=== PATIENT | female | born 1975 | race Caucasian/White ===

== ENCOUNTER → 2017-03-12 | Outpatient (CLI) | payer BC | END | disposition home or self-care (01) | LOC: MAMMO 08:12 | PROVIDERS: ATTEND Family Medicine | DX: Z12.31 Encounter for screening mammogram for malignant neoplasm of breast (principal) | CPT/HCPCS: G0202 ==

== ENCOUNTER → 2017-06-21 | Outpatient (CLI) | payer BC | END | disposition home or self-care (01) | LOC: US 07:58 | PROVIDERS: ATTEND Family Medicine | DX: E04.1 Nontoxic single thyroid nodule (principal) | CPT/HCPCS: 76536 ==

== ENCOUNTER → 2018-04-01 | Outpatient (CLI) | payer BC | END | disposition home or self-care (01) | LOC: US 14:42 | PROVIDERS: ATTEND Family Medicine | DX: E04.1 Nontoxic single thyroid nodule (principal); N92.1 Excessive and frequent menstruation with irregular cycle | CPT/HCPCS: 76536; 76830; 76856; 93005 ==

== ENCOUNTER → 2018-10-29 | Outpatient (CLI) | payer BC | END | disposition home or self-care (01) | LOC: US 07:55 | PROVIDERS: ATTEND Obstetrics & Gynecology Obstetrics | DX: D25.9 Leiomyoma of uterus, unspecified (principal); N95.9 Unspecified menopausal and perimenopausal disorder; D39.0 Neoplasm of uncertain behavior of uterus | CPT/HCPCS: 76830; 76856 ==

== ENCOUNTER 2018-12-10 07:35 | Day surgery (SDC) | payer BC ==
[~2018-12-10] VITALS: Ht 157.5 cm; Wt 86.2 kg
[~2018-12-10 07:35] MED LIST: LOSA25TA26 PO
[2018-12-10] MEDS ORDERED: FENTANYL CITRATE/PF 50MCG/ML 2ML VIAL ONE (08:03)
[2018-12-10] MEDS ORDERED: PROPOFOL 200MG/20ML VIAL IV ONE (08:03)
[2018-12-10] MEDS ORDERED: MIDAZOLAM HCL 2 MG/2 ML VIAL ONE (08:03)
[2018-12-10] MEDS ORDERED: ROCURONIUM BROMIDE 10MG/ML VIAL 5ML IV ONE (08:03)
[2018-12-10] MEDS ORDERED: LIDOCAINE HCL 1% 20ML VIAL (Pyxis) INJ ONE (08:03)
[2018-12-10] MEDS ORDERED: SUCCINYLCHOLINE CHLORIDE 200MG/10ML IV ONE (08:04)
[2018-12-10 08:06] LABS: BASOPHILS % 0.9 % (0.0-2.0); EOSINOPHILS % 1.6 % (0.0-5.0); HEMATOCRIT. 31.9 % (36.0-48.0); HEMOGLOBIN. 9.7 g/dL (12.0-16.0); LYMPHOCYTES % 21.6 % (20.0-50.0); MEAN CORPUSCULAR HEMOGLOBIN 19.7 pg (28.0-32.0); MEAN CORPUSCULAR VOLUME 64.9 fL (81.0-99.0); MEAN PLATELET VOLUME 7.6 fl (7.4-10.4); MONOCYTES % 9.2 % (2.0-8.0); NEUTROPHILS % 66.7 % (40.0-76.0); PLATELET 308 x1000/uL (130-400); RED BLOOD CELL COUNT 4.91 mill/uL (4.2-5.4); RED CELL DISTRIBUTION WIDTH 19.1 % (11.6-14.6)
[2018-12-10 08:07] LABS: CLARITY URINE CLOUDY (CLEAR); COLOR URINE YELLOW (YELLOW); KETONES URINE NEGATIVE (NEGATIVE); LEUKOCYTE ESTERASE URINE 3+ (NEGATIVE); NITRITE URINE NEGATIVE (NEGATIVE); OCCULT BLOOD URINE TRACE (NEGATIVE); PROTEIN URINE NEGATIVE (NEGATIVE); SPECIFIC GRAVITY URINE 1.019 (1.005-1.030); UROBILINOGEN URINE 0.2 E.U./dL (0.2-1.0)
[2018-12-10] MEDS ORDERED: SODIUM CHLORIDE 0.9% 10ML VIAL ONE (08:08)
[2018-12-10] MEDS ORDERED: CEFAZOLIN SODIUM 1000MG/VIAL ONE (08:08)
[2018-12-10 08:09] LABS: UCG SCREEN NEGATIVE
[2018-12-10 08:12] LABS: CHLORIDE 107 mEq/L (98-107)
[2018-12-10 08:17] LABS: INR 0.9; PARTIAL THROMBOPLASTIN TIME 27.6 sec (23.4-31.0); PROTHROMBIN TIME 9.7 sec (9.6-11.0)
[2018-12-10] MEDS ORDERED: LACTATED RINGERS 1,000 ML IV SCH (08:30)
[2018-12-10] MEDS ORDERED: ACETAMINOPHEN 325MG TABLET PO PRN (08:30)
[2018-12-10] MEDS ORDERED: ONDANSETRON HCL 4MG/2ML INJ ONE (08:36)
[2018-12-10] MEDS ORDERED: DEXAMETHASONE 4MG/ML 1ML VIAL ONE (08:36)
[2018-12-10] MEDS ORDERED: METOCLOPRAMIDE HCL 10MG/2ML VIAL ONE (08:37)
[2018-12-10] MEDS ORDERED: HYDROMORPHONE HCL/PF 2MG/ML CPJ IV PRN (09:45)
[2018-12-10 09:56] LABS: PLATELET ESTIMATE NORMAL
== END 2018-12-10 11:05 | disposition home or self-care (01) ==
LOC: OR 07:35
PROVIDERS: ATTEND Obstetrics & Gynecology Obstetrics
DX: Z79.899 Other long term (current) drug therapy (principal); N84.0 Polyp of corpus uteri; I10 Essential (primary) hypertension; E66.9 Obesity, unspecified; Z80.49 Family history of malignant neoplasm of other genital organs
CPT/HCPCS: 36415; 58558; 80048; 81003; 81025; 85025; 85610; 85730; 87086; 88305; 93005; J0330; J0690; J1100; J2250; J2405; J2704; J2765; J3010; J3490

== ENCOUNTER → 2018-12-31 | Outpatient (CLI) | payer BC | END | disposition home or self-care (01) | LOC: RAD 14:39 | PROVIDERS: ATTEND Physician Assistant | DX: M25.522 Pain in left elbow (principal) | CPT/HCPCS: 73080 ==

== ENCOUNTER → 2019-05-19 | Outpatient (CLI) | payer BC ==
[2019-05-19 10:30] LABS: BASOPHILS % 0.6 % (0.0-2.0); EOSINOPHILS % 0.7 % (0.0-5.0); HEMATOCRIT. 31.9 % (36.0-48.0); HEMOGLOBIN. 9.8 g/dL (12.0-16.0); LYMPHOCYTES % 22.3 % (20.0-50.0); MEAN CORPUSCULAR HEMOGLOBIN 19.6 pg (28.0-32.0); MEAN CORPUSCULAR VOLUME 63.8 fL (81.0-99.0); MEAN PLATELET VOLUME 7.6 fl (7.4-10.4); MONOCYTES % 7.4 % (2.0-8.0); PLATELET 319 x1000/uL (130-400)
[2019-05-19 10:45] LABS: CHLORIDE 107 mEq/L (98-107)
[2019-05-19 10:46] LABS: PROTHROMBIN TIME 10.2 sec (9.6-11.0)
[2019-05-19 10:51] LABS: LDL CHOLESTEROL 123 mg/dL (5-100)
[2019-05-19 10:52] LABS: HDL CHOLESTEROL 55 mg/dL (40-59)
[2019-05-19 10:55] LABS: T4 FREE 1.08 ng/dL (0.76-1.46)
[2019-05-19 11:33] LABS: VITAMIN B12 SERUM 552 pg/mL (211-911)
[2019-05-19 12:01] LABS: CARCINO EMBRYONIC ANTIGEN 0.5 ng/ml
[2019-05-19 12:13] LABS: HEPATITIS B SURFACE ANTIGEN NEGATIVE
[2019-05-19 12:41] LABS: HEPATITIS A AB IGM NEGATIVE (NEGATIVE)
[2019-05-19 14:36] LABS: PLATELET ESTIMATE NORMAL
[2019-05-20 10:11] LABS: HELICOBACTER PYLORI AB IGG 0.2 (0.00-0.79); HOMOCYSTEINE PLASMA 7.2 umol/L (0.0-15.0); THYROID PEROXIDASE ANTIBODY 10 IU/mL (0-34); VITAMIN D 25-OH 21.1 ng/mL (30.0-100.0)
[2019-05-20 15:10] LABS: ANTI-NUCLEAR ANTIBODIES DIRECT Negative (Negative)
== END | disposition home or self-care (01) ==
LOC: US 07:59
PROVIDERS: ATTEND Family Medicine
DX: E04.2 Nontoxic multinodular goiter (principal); N63.11 Unspecified lump in the right breast, upper outer quadrant; R22.2 Localized swelling, mass and lump, trunk
CPT/HCPCS: 36415; 76536; 80061; 82306; 82378; 82607; 83036; 83090; 83735; 84439; 84443; 84481; 86038; 86226; 86376; 86677; 86705; 86709; 86803; 87340

== ENCOUNTER → 2019-06-18 | Outpatient (CLI) | payer BC ==
[2019-06-18 08:59] LABS: TOTAL IRON BINDING CAPACITY 493 ug/dL (250-450)
== END | disposition home or self-care (01) ==
LOC: LAB 08:26
PROVIDERS: ATTEND Family Medicine
DX: D64.9 Anemia, unspecified (principal)
CPT/HCPCS: 36415; 82728; 83540; 83550; 84466

== ENCOUNTER → 2019-09-28 | Outpatient (CLI) | payer BC ==
[2019-09-28 09:43] LABS: BASOPHILS % 0.9 % (0.0-2.0); EOSINOPHILS % 2.8 % (0.0-5.0); HEMATOCRIT. 37.4 % (36.0-48.0); HEMOGLOBIN. 12.2 g/dL (12.0-16.0); LYMPHOCYTES % 20.6 % (20.0-50.0); MEAN CORPUSCULAR HEMOGLOBIN 23.3 pg (28.0-32.0); MEAN CORPUSCULAR VOLUME 71.7 fL (81.0-99.0); MEAN PLATELET VOLUME 8.5 fl (7.4-10.4); MONOCYTES % 6.6 % (2.0-8.0); NEUTROPHILS % 69.1 % (40.0-76.0); PLATELET 270 x1000/uL (130-400); RED BLOOD CELL COUNT 5.22 mill/uL (4.2-5.4)
[2019-09-28 09:52] LABS: TOTAL IRON BINDING CAPACITY 477 ug/dL (250-450)
[2019-09-28 10:59] LABS: PLATELET ESTIMATE NORMAL
== END | disposition home or self-care (01) ==
LOC: LAB 08:48
PROVIDERS: ATTEND Family Medicine
DX: R05 Cough (principal); R10.9 Unspecified abdominal pain; D50.9 Iron deficiency anemia, unspecified
CPT/HCPCS: 36415; 71045; 83540; 83550; 85025

== ENCOUNTER → 2020-07-06 | Outpatient (CLI) | payer BC ==
[2020-07-06 11:35] LABS: BASOPHILS % 0.6 % (0.0-2.0); EOSINOPHILS % 1.7 % (0.0-5.0); HEMATOCRIT. 33.3 % (36.0-48.0); HEMOGLOBIN. 10.3 g/dL (12.0-16.0); MEAN CORPUSCULAR HEMOGLOBIN 20.1 pg (28.0-32.0); MEAN PLATELET VOLUME 7.9 fl (7.4-10.4); MONOCYTES % 8.9 % (2.0-8.0); NEUTROPHILS % 63.8 % (40.0-76.0); PLATELET 299 x1000/uL (130-400); RED BLOOD CELL COUNT 5.12 mill/uL (4.2-5.4); RED CELL DISTRIBUTION WIDTH 19.3 % (11.6-14.6)
[2020-07-06 11:41] LABS: CLARITY URINE CLEAR (CLEAR); COLOR URINE YELLOW (YELLOW); KETONES URINE NEGATIVE (NEGATIVE); LEUKOCYTE ESTERASE URINE NEGATIVE (NEGATIVE); NITRITE URINE NEGATIVE (NEGATIVE); OCCULT BLOOD URINE NEGATIVE (NEGATIVE); PH URINE 6.5 (4.5-8.0); PROTEIN URINE NEGATIVE (NEGATIVE); SPECIFIC GRAVITY URINE 1.008 (1.005-1.030); UROBILINOGEN URINE 0.2 E.U./dL (0.2-1.0)
[2020-07-06 11:44] LABS: CHLORIDE 104 mEq/L (98-107)
[2020-07-06 11:52] LABS: HDL CHOLESTEROL 64 mg/dL (40-59)
[2020-07-06 11:53] LABS: LDL CHOLESTEROL 142 mg/dL (5-100)
[2020-07-06 12:00] LABS: T4 FREE 1.11 ng/dL (0.76-1.46)
[2020-07-06 15:54] LABS: PLATELET ESTIMATE NORMAL
== END | disposition home or self-care (01) ==
LOC: LAB 10:36
PROVIDERS: ATTEND Family Medicine
DX: I10 Essential (primary) hypertension (principal); E04.1 Nontoxic single thyroid nodule
CPT/HCPCS: 36415; 80053; 80061; 81003; 83036; 84439; 84443; 84481; 85025; 86376

== ENCOUNTER → 2020-07-19 | Outpatient (CLI) | payer BC | END | disposition home or self-care (01) | LOC: LAB 10:50 | PROVIDERS: ATTEND Family Medicine | DX: Z20.828 Contact with and (suspected) exposure to other viral communicable diseases (principal) | CPT/HCPCS: 87426 ==

== ENCOUNTER → 2020-07-20 | Outpatient (CLI) | payer BC | END | disposition home or self-care (01) | LOC: US 10:04 | PROVIDERS: ATTEND Family Medicine | DX: E04.2 Nontoxic multinodular goiter (principal) | CPT/HCPCS: 76536 ==

== ENCOUNTER → 2020-08-31 | Outpatient (CLI) | payer BC | END | disposition home or self-care (01) | LOC: LAB 11:16 | PROVIDERS: ATTEND Surgery | DX: Z01.812 Encounter for preprocedural laboratory examination (principal); Z20.822 Contact with and (suspected) exposure to COVID-19 | CPT/HCPCS: 87426 ==

== ENCOUNTER → 2020-09-01 | Outpatient (CLI) | payer BC ==
[~2020-09-01] MED LIST changes: +LIDOCAINE HCL 1% 20ML VIAL (Pyxis) INJ ONE; +SODIUM BICARBONATE 4% (2.4MEQ) 5ML VIAL IV ONE
== END | disposition home or self-care (01) ==
LOC: RAD 10:00
PROVIDERS: ATTEND Surgery
DX: E04.1 Nontoxic single thyroid nodule (principal); Z79.899 Other long term (current) drug therapy
CPT/HCPCS: 10005; 88172; 88173; J3490; Z7610

== ENCOUNTER → 2022-01-16 | Outpatient (CLI) | payer BC ==
[~2022-01-16] MED LIST changes: -LIDOCAINE HCL 1% 20ML VIAL (Pyxis) INJ ONE; -SODIUM BICARBONATE 4% (2.4MEQ) 5ML VIAL IV ONE
[2022-01-16 12:11] LABS: BASOPHILS % 0.6 % (0.0-2.0); EOSINOPHILS % 2.5 % (0.0-5.0); HEMATOCRIT. 32.4 % (36.0-48.0); HEMOGLOBIN. 9.9 g/dL (12.0-16.0); LYMPHOCYTES % 25.7 % (20.0-50.0); MEAN CORPUSCULAR HEMOGLOBIN 19.6 pg (28.0-32.0); MEAN CORPUSCULAR VOLUME 63.9 fL (81.0-99.0); MEAN PLATELET VOLUME 7.9 fl (7.4-10.4); MONOCYTES % 7.7 % (2.0-8.0); NEUTROPHILS % 63.5 % (40.0-76.0); PLATELET 344 x1000/uL (130-400); RED BLOOD CELL COUNT 5.08 mill/uL (4.2-5.4); RED CELL DISTRIBUTION WIDTH 18.5 % (11.6-14.6)
[2022-01-16 12:17] LABS: CLARITY URINE CLEAR (CLEAR); COLOR URINE YELLOW (YELLOW); KETONES URINE NEGATIVE (NEGATIVE); LEUKOCYTE ESTERASE URINE NEGATIVE (NEGATIVE); NITRITE URINE NEGATIVE (NEGATIVE); OCCULT BLOOD URINE NEGATIVE (NEGATIVE); PROTEIN URINE NEGATIVE (NEGATIVE); SPECIFIC GRAVITY URINE 1.003 (1.005-1.030); UROBILINOGEN URINE 0.2 E.U./dL (0.2-1.0)
[2022-01-16 12:32] LABS: CHLORIDE 102 mEq/L (98-107)
[2022-01-16 12:46] LABS: HDL CHOLESTEROL 53 mg/dL (40-59); LDL CHOLESTEROL 156 mg/dL (5-100); T4 FREE 1.18 ng/dL (0.76-1.46)
[2022-01-16 13:17] LABS: PLATELET ESTIMATE NORMAL
[2022-01-16 15:18] LABS: VITAMIN B12 SERUM 539 pg/mL (211-911)
[2022-01-17 07:10] LABS: THYROID PEROXIDASE ANTIBODY < 8 IU/mL (0-34)
== END | disposition home or self-care (01) ==
LOC: US 10:46
PROVIDERS: ATTEND Family Medicine
DX: Z13.29 Encounter for screening for other suspected endocrine disorder (principal); E04.1 Nontoxic single thyroid nodule; I10 Essential (primary) hypertension; E55.9 Vitamin D deficiency, unspecified
CPT/HCPCS: 36415; 76536; 80053; 80061; 81003; 82306; 82607; 83036; 84439; 84443; 84481; 85025; 86376

== ENCOUNTER → 2022-11-19 | Outpatient (CLI) | payer BC ==
[2022-11-19 12:22] LABS: CHLORIDE 102 mEq/L (98-107)
[2022-11-19 12:41] LABS: HDL CHOLESTEROL 60 mg/dL (40-59); LDL CHOLESTEROL 169 mg/dL (5-100); T4 FREE 1.05 ng/dL (0.76-1.46)
== END | disposition home or self-care (01) ==
LOC: LAB 11:33
PROVIDERS: ATTEND Pediatrics
DX: I10 Essential (primary) hypertension (principal); R73.03 Prediabetes; D50.9 Iron deficiency anemia, unspecified; E55.9 Vitamin D deficiency, unspecified; E78.5 Hyperlipidemia, unspecified; E03.4 Atrophy of thyroid (acquired)
CPT/HCPCS: 36415; 80053; 80061; 82306; 82728; 83036; 84439; 84443; 84481

== ENCOUNTER → 2022-11-30 | Outpatient (CLI) | payer BC | END | disposition home or self-care (01) | LOC: MAMMO 10:24 | PROVIDERS: ATTEND Family Medicine | DX: Z12.31 Encounter for screening mammogram for malignant neoplasm of breast (principal); E04.2 Nontoxic multinodular goiter | CPT/HCPCS: 76536; 77063; 77067 ==

== ENCOUNTER → 2022-12-14 | Day surgery (SDC) | payer BC | END | disposition home or self-care (01) | LOC: RAD 09:52 | PROVIDERS: ATTEND Family Medicine | DX: E04.1 Nontoxic single thyroid nodule (principal); Z79.899 Other long term (current) drug therapy | CPT/HCPCS: 10005; 88172; 88173 ==

== ENCOUNTER 2023-04-17 07:04 | Day surgery (SDC) | payer BC ==
[~2023-04-17] VITALS: Ht 154.9 cm; Wt 88.5 kg
[2023-04-17 07:57] LABS: UCG SCREEN NEGATIVE
[2023-04-17 08:14] LABS: BASOPHILS % 0.4 % (0.0-2.0); DIFFERENTIAL COMMENT 0; EOSINOPHILS % 1.7 % (0.0-5.0); HEMATOCRIT. 34.7 % (36.0-48.0); HEMOGLOBIN. 11.1 g/dL (12.0-16.0); LYMPHOCYTES % 24.3 % (20.0-50.0); MEAN CORPUSCULAR HEMOGLOBIN 22.8 pg (28.0-32.0); MEAN CORPUSCULAR HGB CONC 32.1 g/dL (31.0-37.0); MEAN PLATELET VOLUME 8.2 fl (7.4-10.4); NEUTROPHILS % 64.6 % (40.0-76.0); PLATELET 269 x1000/uL (130-400); RED BLOOD CELL COUNT 4.89 mill/uL (4.2-5.4); RED CELL DISTRIBUTION WIDTH 21.8 % (11.6-14.6); WHITE BLOOD COUNT 7.9 x1000/uL (4.5-11.0)
[2023-04-17] MEDS ORDERED: LACTATED RINGERS 1,000 ML IV SCH (08:15)
[2023-04-17 08:24] LABS: CHLORIDE 105 mEq/L (98-107); INDEX HEMOLYSI 1 (1-3); INDEX ICTERIC 1 (1-4); INDEX LIPEMIC 1 (1-3); POTASSIUM 4.2 mEq/L (3.5-5.1); SODIUM 136 mEq/L (136-145)
[2023-04-17 08:32] LABS: CALCIUM 8.9 mg/dL (8.5-10.1); CARBON DIOXIDE 26 mEq/L (21-32); CREATININE 0.6 mg/dL (0.6-1.3); GLUCOSE 100 mg/dL (70-105); UREA NITROGEN BLOOD 12 mg/dL (7-21)
[2023-04-17 08:32] LABS: CLARITY URINE CLEAR (CLEAR); COLOR URINE YELLOW (YELLOW); GLUCOSE URINE NEGATIVE (NEGATIVE); KETONES URINE NEGATIVE (NEGATIVE); OCCULT BLOOD URINE TRACE (NEGATIVE); PH URINE 5.5 (4.5-8.0); PROTEIN URINE NEGATIVE (NEGATIVE); SPECIFIC GRAVITY URINE 1.009 (1.005-1.030)
[2023-04-17 08:33] LABS: LEUKOCYTE ESTERASE URINE NEGATIVE (NEGATIVE); NITRITE URINE NEGATIVE (NEGATIVE); UROBILINOGEN URINE 0.2 E.U./dL (0.2-1.0)
[2023-04-17] MEDS ORDERED: VALS40TA11 PO (08:34)
[2023-04-17 08:35] LABS: MUCUS URINE TRACE /lpf (< = 2+); SQUAMOUS EPITHELIAL CELL URINE 1+ /lpf (RARE/1+)
[2023-04-17 08:36] LABS: BACTERIA URINE 1+
[2023-04-17 08:37] LABS: WBC URINE 0-2 /hpf (0-2)
[2023-04-17 08:38] LABS: RBC URINE NONE SEEN /hpf (0-2)
[2023-04-17] MEDS ORDERED: ONDANSETRON HCL 4MG/2ML INJ ONE (08:53)
[2023-04-17] MEDS ORDERED: DEXAMETHASONE 4MG/ML 1ML VIAL ONE (08:53)
[2023-04-17] MEDS ORDERED: LIDOCAINE HCL 1% 10 MG/ML 10ML VIAL ONE ×3 (08:54→12:06)
[2023-04-17] MEDS ORDERED: PROPOFOL 200MG/20ML VIAL IV ONE (08:54)
[2023-04-17] MEDS ORDERED: MIDAZOLAM HCL 2 MG/2 ML VIAL ONE (08:54)
[2023-04-17] MEDS ORDERED: FENTANYL CITRATE/PF 50MCG/ML 2ML VIAL ONE (08:55)
[2023-04-17] MEDS ORDERED: ONDANSETRON HCL 4MG/2ML INJ IV PRN (09:45)
[2023-04-17] MEDS ORDERED: MEPERIDINE HCL/PF 25MG/ML CPJ IV PRN (09:45)
[2023-04-17] MEDS ORDERED: LABETALOL 5MG/ML SYR 20 MG/4 ML SYRINGE IV PRN (09:45)
[2023-04-17] MEDS ORDERED: HYDROMORPHONE HCL/PF 2MG/ML CPJ IV PRN (09:45)
[2023-04-17] MEDS ORDERED: BUPIVACAINE HCL/PF 0.5% (5MG/ML) 10ML ONE (12:06)
[2023-04-17] MEDS ORDERED: POLYMYXIN B SULFATE 500000 UNITS/VIAL ONE (12:06)
== END 2023-04-17 12:25 | disposition home or self-care (01) ==
LOC: OR 07:04
PROVIDERS: ATTEND Obstetrics & Gynecology Obstetrics
DX: N92.4 Excessive bleeding in the premenopausal period (principal); N84.0 Polyp of corpus uteri; I10 Essential (primary) hypertension; Z79.899 Other long term (current) drug therapy; Z98.890 Other specified postprocedural states
CPT/HCPCS: 58558; 88305; 80048; 81003; 81025; 85025; 36415; J3010; J3490 ×3; J1100; J2250; J2405; J2704

== ENCOUNTER 2023-05-22 07:16 | Inpatient (IN) | payer BC ==
[~2023-05-22] VITALS: Ht 154.9 cm; Wt 88.0 kg
[~2023-05-22 07:16] MED LIST changes: -LOSA25TA26 PO; +VALS40TA11 PO
[2023-05-22 08:01] LABS: BASOPHILS % 0.6 % (0.0-2.0); DIFFERENTIAL COMMENT 1; EOSINOPHILS % 1.3 % (0.0-5.0); HEMATOCRIT. 35.8 % (36.0-48.0); HEMOGLOBIN. 11.1 g/dL (12.0-16.0); LYMPHOCYTES % 27.9 % (20.0-50.0); MEAN CORPUSCULAR HEMOGLOBIN 22.7 pg (28.0-32.0); MEAN CORPUSCULAR HGB CONC 31.2 g/dL (31.0-37.0); MEAN CORPUSCULAR VOLUME 72.7 fL (81.0-99.0); MEAN PLATELET VOLUME 8.5 fl (7.4-10.4); NEUTROPHILS % 60.2 % (40.0-76.0); PLATELET 245 x1000/uL (130-400); RED BLOOD CELL COUNT 4.92 mill/uL (4.2-5.4); RED CELL DISTRIBUTION WIDTH 18.8 % (11.6-14.6); WHITE BLOOD COUNT 6.6 x1000/uL (4.5-11.0)
[2023-05-22 08:12] LABS: CHLORIDE 107 mEq/L (98-107); INDEX HEMOLYSI 1 (1-3); INDEX ICTERIC 1 (1-4); INDEX LIPEMIC 1 (1-3); PARTIAL THROMBOPLASTIN TIME 28.2 sec (23.4-31.0); POTASSIUM 3.7 mEq/L (3.5-5.1); PROTHROMBIN TIME 10.6 sec (9.6-11.0); SODIUM 138 mEq/L (136-145)
[2023-05-22 08:13] LABS: UCG SCREEN NEGATIVE
[2023-05-22 08:15] LABS: CLARITY URINE TURBID (CLEAR); COLOR URINE YELLOW (YELLOW); GLUCOSE URINE NEGATIVE (NEGATIVE); KETONES URINE NEGATIVE (NEGATIVE); LEUKOCYTE ESTERASE URINE 2+ (NEGATIVE); NITRITE URINE NEGATIVE (NEGATIVE); OCCULT BLOOD URINE TRACE (NEGATIVE); PROTEIN URINE TRACE (NEGATIVE); SPECIFIC GRAVITY URINE 1.019 (1.005-1.030); UROBILINOGEN URINE 0.2 E.U./dL (0.2-1.0)
[2023-05-22 08:20] LABS: CALCIUM 8.7 mg/dL (8.5-10.1); CARBON DIOXIDE 26 mEq/L (21-32); CREATININE 0.7 mg/dL (0.6-1.3); GLUCOSE 105 mg/dL (70-105); UREA NITROGEN BLOOD 7 mg/dL (7-21)
[2023-05-22 08:35] LABS: SQUAMOUS EPITHELIAL CELL URINE 3+ /lpf (RARE/1+)
[2023-05-22 08:36] LABS: BACTERIA URINE 3+
[2023-05-22 08:37] LABS: RBC URINE 0-2 /hpf (0-2)
[2023-05-22 08:38] LABS: WBC URINE 0-2 /hpf (0-2)
[2023-05-22] MEDS ORDERED: METHYLENE BLUE 50 MG/10 ML AMP IV ONE (08:44)
[2023-05-22] MEDS ORDERED: VASOPRESSIN 20 UNIT/ML 1ML ONE (08:45)
[2023-05-22] MEDS ORDERED: ROCURONIUM BROMIDE 10MG/ML VIAL 5ML IV ONE ×2 (08:55→11:04)
[2023-05-22] MEDS ORDERED: PROPOFOL 200MG/20ML VIAL IV ONE (08:55)
[2023-05-22] MEDS ORDERED: FENTANYL CITRATE/PF 50MCG/ML 2ML VIAL ONE (08:55)
[2023-05-22] MEDS ORDERED: SUCCINYLCHOLINE CHLORIDE 200MG/10ML IV ONE (08:55)
[2023-05-22] MEDS ORDERED: MIDAZOLAM HCL 2 MG/2 ML VIAL ONE (08:55)
[2023-05-22] MEDS ORDERED: GLYCOPYRROLATE 0.2 MG/ML 2ML VIAL ONE (10:26)
[2023-05-22] MEDS ORDERED: NEOSTIGMINE METHYLSULFATE 1MG/ML 10 ML VIAL ONE (12:01)
[2023-05-22] MEDS ORDERED: METOCLOPRAMIDE HCL 10MG/2ML VIAL ONE (12:02)
[2023-05-22] MEDS ORDERED: ONDANSETRON HCL 4MG/2ML INJ ONE (12:02)
[2023-05-22] MEDS ORDERED: DEXAMETHASONE 4MG/ML 1ML VIAL ONE (12:02)
[2023-05-22] MEDS ORDERED: HYDROMORPHONE HCL/PF 2MG/ML CPJ IV PRN (12:45)
[2023-05-22] MEDS ORDERED: IBUPROFEN 600MG TABLET PO PRN (12:45)
[2023-05-22] MEDS ORDERED: KETOROLAC 30MG/ML VIAL IV ONE ×2 (12:45→13:15)
[2023-05-22] MEDS: HYDROMORPHONE HCL/PF 2MG/ML CPJ IV PRN ×5 (13:10→20:41)
[2023-05-22] MEDS ORDERED: KETOROLAC 30MG/ML VIAL IV NR (13:30)
[2023-05-22] MEDS ORDERED: HYDROCODONE/ACETAMINOPHEN 10/325MG TABLET PO PRN (13:30)
[2023-05-22] MEDS ORDERED: NALOXONE HCL 0.4MG/ML VIAL IV PRN (13:45)
[2023-05-22 16:00] VITALS: BP 141/72; PULSE 70; RESP 19; TEMP 96.8
[2023-05-22 20:00] VITALS: BP 141/74; PULSE 78; RESP 18; TEMP 96.3
[2023-05-22 23:00] VITALS: BP 141/74; PULSE 78; RESP 18; TEMP 96.3
[2023-05-23] VITALS: BP 115/67; PULSE 80; RESP 18; TEMP 96.7
[2023-05-23] MEDS ORDERED: ONDANSETRON HCL 4MG/2ML INJ IV PRN
[2023-05-23 04:00] VITALS: BP 141/79; PULSE 82; RESP 18; TEMP 97.2
[2023-05-23 08:00] VITALS: BP 121/64; PULSE 84; RESP 20; TEMP 98.2
[2023-05-23] MEDS ORDERED: IOHEXOL-350 100 ML BOTTLE ONE (10:56)
[2023-05-23] MEDS: HYDROMORPHONE HCL/PF 2MG/ML CPJ IV PRN ×2 (10:59→17:58)
[2023-05-23 16:00] VITALS: BP 118/62; PULSE 89; RESP 19; TEMP 97.9
[2023-05-23 19:40] VITALS: BP 118/62; PULSE 69; TEMP 97.9; O2SAT 99
[2023-05-24] MEDS ORDERED: VALSARTAN 40MG TABLET PO SCH (08:00)
== END 2023-05-23 20:04 | disposition home or self-care (01) | DRG 743 ==
LOC: OR 07:16 → 6EST 15:11
PROVIDERS: ADMIT Obstetrics & Gynecology Obstetrics; ATTEND Obstetrics & Gynecology Obstetrics
PROC: 0UB24ZZ Excision of Bilateral Ovaries, Percutaneous Endoscopic Approach (ICD-10-PCS; principal; 2023-05-22)
PROC: 0UB74ZZ Excision of Bilateral Fallopian Tubes, Percutaneous Endoscopic Approach (ICD-10-PCS; 2023-05-22)
DX: D25.9 Leiomyoma of uterus, unspecified (principal); N85.00 Endometrial hyperplasia, unspecified; Z80.41 Family history of malignant neoplasm of ovary; Z90.710 Acquired absence of both cervix and uterus
CPT/HCPCS: 36415; 74178; 80048; 81003; 81025; 85025; 86850; 86900; 88304; 93005; C1725; J0330; J1100; J1170; J1885; J2250; J2405; J2704; J2710; J2765; J3010; J3490; J7030; Q9967; Q9968

== ENCOUNTER → 2024-02-21 | Outpatient (CLI) | payer BC ==
[2024-02-21 10:41] LABS: BASOPHILS % 0.5 % (0.0-2.0); EOSINOPHILS % 1.5 % (0.0-5.0); HEMATOCRIT. 45.2 % (36.0-48.0); HEMOGLOBIN. 15.1 g/dL (12.0-16.0); MEAN CORPUSCULAR HEMOGLOBIN 28.6 pg (28.0-32.0); MEAN CORPUSCULAR HGB CONC 33.5 g/dL (31.0-37.0); MEAN CORPUSCULAR VOLUME 85.6 fL (81.0-99.0); MEAN PLATELET VOLUME 8.4 fl (7.4-10.4); MONOCYTES % 6.3 % (2.0-8.0); NEUTROPHILS % 67.7 % (40.0-76.0); PLATELET 198 x1000/uL (130-400); RED BLOOD CELL COUNT 5.28 mill/uL (4.2-5.4); RED CELL DISTRIBUTION WIDTH 14.8 % (11.6-14.6); WHITE BLOOD COUNT 6.5 x1000/uL (4.5-11.0)
[2024-02-21 11:01] LABS: CHLORIDE 105 mEq/L (98-107); POTASSIUM 3.8 mEq/L (3.5-5.1); SODIUM 139 mEq/L (136-145)
[2024-02-21 11:03] LABS: CALCIUM 9.7 mg/dL (8.7-10.4); CARBON DIOXIDE 26 mEq/L (21-32)
[2024-02-21 11:08] LABS: CREATININE 0.6 mg/dL (0.6-1.0); GLUCOSE 91 mg/dL (70-105); TRIGLYCERIDE 201 mg/dL (0-150); UREA NITROGEN BLOOD 8 mg/dL (9-23)
[2024-02-21 11:09] LABS: FOLIC ACID (FOLATE) SERUM 13.91 ng/mL (>5.38); LDL CHOLESTEROL 185 mg/dL (5-100); VITAMIN B12 SERUM 1310 pg/mL (211-911)
[2024-02-21 11:10] LABS: ALANINE AMINOTRANSFERASE 24 IU/L (10-49); ALBUMIN 4.8 g/dL (3.2-4.8); ASPARTATE AMINOTRANSFERASE 21 IU/L (<34); CHOLESTEROL 242 mg/dL (<200); HDL CHOLESTEROL 49 mg/dL (>65); T4 FREE 1.11 ng/dL (0.89-1.76)
[2024-02-21 11:11] LABS: BILIRUBIN TOTAL 0.4 mg/dL (0.1-1.0); PROTEIN TOTAL 7.6 g/dL (6.0-8.3)
[2024-02-21 12:09] LABS: ERYTHROCYTE SEDIMENTATION RATE 8 mm/hr (0-20)
[2024-02-22 09:06] LABS: ANTI-NUCLEAR ANTIBODIES DIRECT Negative (Negative); RF PROFILE < 10.0 IU/mL (<14.0); THYROID PEROXIDASE ANTIBODY 12 IU/mL (0-34); VITAMIN D 25-OH 65.1 ng/mL (30.0-100.0)
[2024-02-22 19:10] LABS: CCP IgG/IgA PROFILE 0 units (0-19)
== END | disposition home or self-care (01) ==
LOC: MAMMO 08:13
PROVIDERS: ATTEND Internal Medicine Endocrinology, Diabetes & Metabolism
DX: Z12.31 Encounter for screening mammogram for malignant neoplasm of breast (principal); R92.323 Mammographic fibroglandular density, bilateral breasts; E55.9 Vitamin D deficiency, unspecified; I10 Essential (primary) hypertension; R73.9 Hyperglycemia, unspecified; E04.9 Nontoxic goiter, unspecified; M54.9 Dorsalgia, unspecified; E04.2 Nontoxic multinodular goiter
CPT/HCPCS: 36415; 76536; 77063; 77067; 80053; 80061; 82306; 82607; 82746; 83036; 83921; 84432; 84439; 84443; 85025; 85651; 86038; 86200; 86376; 86431

== ENCOUNTER → 2024-04-20 | Outpatient (CLI) | payer BC | END | disposition home or self-care (01) | LOC: NM 07:41 | PROVIDERS: ATTEND Internal Medicine Endocrinology, Diabetes & Metabolism | DX: E05.90 Thyrotoxicosis, unspecified without thyrotoxic crisis or storm (principal) | CPT/HCPCS: 78014; A9516 ==